=== PATIENT | female | born 2000 | race African-American/Black ===

== ENCOUNTER 2020-07-13 16:52 | Outpatient (CLI) | payer BC, SELFPAY ==
--- NOTE | ~2020-07-13 | MR_ITS ---
EXAMINATION: MR shoulder RT wo con DATE: 07/13/2020 17:38 INDICATION: Right shoulder pain and limited range of motion post injury several weeks prior TECHNIQUE: Magnetic resonance imaging (MRI) of the right shoulder was performed without intravenous c ontrast. Sequences included axial PD-weighted FS FSE, coronal oblique PD-weighted FS FSE, coronal obl ique T2-weighted FS FSE, sagittal PD-weighted FS FSE, and sagittal T1-weighted SE. COMPARISON: None. FINDINGS: Coracoacromial arch: The acromion undersurface is curved in morphology (type II). The coracoacromial ligament is normal. T here is marrow edema and suggestion of periosteal reaction at the lateral head of the right clavicle. No evident fracture line. The acromioclavicular alignment and joint space remains normal. There is m ild increased signal along the otherwise intact appearing coracoclavicular ligament. Rotator cuff: The supraspinatus, infraspinatus and teres minor tendons are normal. The subscapularis tendon is norm al. Normal rotator cuff muscle bulk and signal. Biceps tendon, glenoid labrum and glenohumeral cartilage: Long head of the biceps tendon is normal. Mild linear increased signal extending laterally into the 1 1:00-11:30 position of the posterior superior glenoid labrum consistent with small labral tear. Gleno humeral cartilage is normal. Fluid: Physiologic amount of fluid in the glenohumeral joint and biceps tendon sheath. No loose osteochondra l bodies. No abnormal fluid signal in the subacromial/subdeltoid bursa to suggest bursitis. Bones: Aside from the lateral right clavicle there is normal marrow signal. IMPRESSION: 1. Findings suggesting an acromioclavicular joint separation injury with normal alignment of the acro mioclavicular joint but with marrow edema and periosteal reaction along the lateral right clavicle li [place] related to acromioclavicular capsular avulsion injury and with low-grade sprain of the coracocla vicular ligament. Differential for the clavicular marrow edema would also include bone contusion and distal clavicular osteolysis. 2. Small tear at the posterior superior glenoid labrum. Reviewed, dictated and finalized at location A. ENTER HELPER IMPRESSION: 1. Findings suggesting an acromioclavicular joint separation injury with normal alignment of the acromioclavicular joint but with marrow edema and periosteal reaction along the lateral right clavicle likely related to acromioclavicular c apsular avulsion injury and with low-grade sprain of the coracoclavicular ligam ent. Differential for the clavicular marrow edema would also include bone contu eli and distal clavicular osteolysis. 2. Small tear at the posterior superior glenoid labrum.
== END 2020-07-13 16:53 | disposition home or self-care (01) ==
PROVIDERS: PCP Pediatrics; Visit Provider Nurse Practitioner Family
DX: S43.431A Superior glenoid labrum lesion of right shoulder, initial encounter (principal); X58.XXXA Exposure to other specified factors, initial encounter
CPT/HCPCS: 73221

== ENCOUNTER 2021-07-20 10:45 | Emergency (ER) | payer BC, SELFPAY ==
[2021-07-20] VITALS (7 sets, daily range): BP systolic 112–123; BP diastolic 71–85; PULSE 68–76; RESP 18; TEMP 37.2; O2SAT 100
--- NOTE | ~2021-07-20 | CT_ITS ---
EXAMINATION: CT brain wo con DATE: 07/20/2021 11:31 INDICATION: Left-sided numbness TECHNIQUE: Computed tomography (CT) of the head was performed without intravenous contrast. Sagittal and coronal reconstructions were performed. The mA was adjusted according to patient size. Iterative reconstruction technique was employed. The dose-length product was 605.33 mGy-cm. COMPARISON: None FINDINGS: No acute intracranial hemorrhage, acute infarction or abnormal extra axial fluid collection. Ventricl es are normal and symmetric. No mass/mass effect. Mucosal thickening in the posterior left ethmoid si nus. The orbits and mastoid air cells are normal. IMPRESSION: 1. Normal brain. Reviewed, dictated and finalized at location A. SERVICING REPRESENTATIVE IMPRESSION: 1. Normal brain.
--- NOTE | 2021-07-20 11:39 | PC.NURSE ---
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 Charge nurse and MD made aware.
[2021-07-20 12:10] LABS: Basophils Percent Auto 0.5 % (0.2-1.2); Eosinophils Absolute Auto 0.1 K/mm3 (0-0.3); Eosinophils Percent Auto 1.1 % (0-4.4); Hematocrit 37.8 % (37.0-47.0); Hemoglobin 12.7 g/dL (12.0-15.0); Immature Granulocyte Absolute 0.02 K/mm3 (0.00-0.031); Immature Granulocyte Percent A 0.2 % (0-0.5); Lymphocytes Absolute Auto 3.18 K/mm3 (0.9-3.2); Lymphocytes Percent Auto 39.4 % (18.3-44.2); Mean Corpuscular HGB Conc 33.6 g/dl (32-36); Mean Corpuscular Volume 83.3 fl (80-100); Mean Platelet Volume 10.2 fl (7.4-10.4); Monocytes Absolute Auto 0.6 K/mm3 (0.1-0.6); Monocytes Percent Auto 7.4 % (2.6-8.5); Neutrophils Absolute Auto 4.1 K/mm3 (1.3-6.7); Neutrophils Percent Auto 51.4 % (45.5-73.1); Platelet Count Result 215 k/mm3 (150-375); Red Blood Count 4.54 M/mm3 (4.2-5.4); Red Cell Distribution Width 12.6 % (11.5-14.5); White Blood Count 8.1 K/mm3 (4.5-10.0)
[2021-07-20 12:23] LABS: Add Urine Microscopic? YES; Appearance Urine Clear (Clear); Bilirubin Urine Negative (Negative); Blood Urine 1+ (Negative); Color Urine Straw (Yellow); Glucose Urine UA Negative (Negative); Ketones Urine Negative (Negative); Leukocyte Esterase Ur Negative LEU/UL (Negative); Nitrate Urine Negative (Negative); Protein Urine Negative (Negative); RBC Urine 0-2 /hpf (0-2); Specific Grav Ur 1.008 (1.001-1.035); Squamous Epithelial Cell Urine Rare /hpf (Few); Urobilinogen Urine Negative mg/dL (<2.0); WBC Urine 0-3 /hpf
[2021-07-20 12:24] LABS: Alanine Aminotransferase 21 U/L (4-35); Albumin Level 4.1 g/dL (3.5-5.1); Alkaline Phosphatase 119 U/L (38-126); Anion Gap 6 mmol/L (8-16); Aspartate Amino Transferase 30 U/L (14-36); Bilirubin,Total 0.4 mg/dL (0.2-1.3); Blood Urea Nitrogen 12 mg/dL (7-17); Calcium 8.8 mg/dL (8.4-10.2); Carbon Dioxide 26 mmol/L (22-30); Chloride 104 mmol/L (98-107); Estimated CRCL calculation 114 ml/min; Estimated Glomerular Filt Rate > 60; Glucose 103 mg/dL (65-110); Potassium 3.7 mmol/L (3.4-5.0); Sodium 136 mmol/L (137-145)
[2021-07-20] MEDS: methylPREDNISolone SOD SUCC 125 MG VIAL IV PUSH (13:13)
--- NOTE | 2021-07-20 16:09 | ED.GENADULT ---
HPI - General Adult General Chief complaint: Unspecified Stated complaint: paresthesia Time Seen by Provider: 07/20/21 11:54 Source: patient Mode of arrival: ambulatory Limitations: no limitations History of Present Illness HPI narrative: Patient presents with chief complaint of itching and tingling. Left upper and lower extremities that began while she was lying on her right side. Patient reports the left side feels as if she has been sleeping on them that she had not. Patient reports that she is can move the extremities without difficulties. She denies speech issues, changes in mentation, head injury or other bodily injury. She denies fever, chills, chest pain, shortness of breath, nausea, vomiting, changes in vision or hearing or headache. Related Data Home Medications Medication Instructions Recorded Confirmed No Home Medications 07/05/20 07/05/20 Allergies Allergy/AdvReac Type Severity Reaction Status Date / Time No Known Allergies Allergy Verified 07/05/20 14:21 Review of Systems Review of Systems: CONSTITUTIONAL: Denies fever, chills, or sweats. EYES: Denies visual changes, redness, or discharge. ENT: Denies rhinorrhea, congestion, sore throat, or otalgia. CARDIOVASCULAR: Denies chest pain, palpitations, or edema. RESPIRATORY: Denies cough or dyspnea. GASTROINTESTINAL: Denies abdominal pain, nausea, vomiting, or diarrhea. GENITOURINARY: Denies dysuria or hematuria. SKIN: Denies rash or itching. MUSCULOSKELETAL: Denies back pain, joint pain, or myalgia. NEUROLOGIC: Reports tingling denies headache, numbness, dizziness, or weakness. PSYCHIATRIC: Denies anxiety or depression. [facility] Past Medical History Medical History (Updated 07/20/21 @ 13:24 by Adriane Hutchins PA-C) Chest tightness Chronic headaches Coughing Light headedness Nausea Right shoulder pain Rotator cuff tear Wears glasses Family History Family History (Updated 07/05/20 @ 14:57 by Cherelle Horowitz, RT(R)) Other Family history of malignant neoplasm Stomach cancer Social History Social History (Updated 07/05/20 @ 14:57 by Cherelle Horowitz, RT(R)) Smoking status: Never smoker Alcohol intake: current Substance use: never Substance use type: does not use Gender identity (if verbalized by the patient): Female Exam Narrative: GENERAL: Well-appearing, well-nourished, and in no acute distress. HEAD: Normocephalic, atraumatic. EYES: PERRLA and EOMI. ENT: Nares clear, no rhinorrhea or epistaxis. Mucous membranes moist. Oropharynx without tonsillar hypertrophy exudate or other lesions. Bilateral TMs pearly be nonbulging. No hemotympanum NECK: Supple. No adenopathy or masses. Range of motion intact without signs of injury. CHEST: Clear to auscultation. No respiratory distress. No wheezes rales or rhonchi HEART: Regular rate and rhythm. EXTREMITIES: Normal range of motion. No edema. No outward signs of trauma. SKIN: Warm, dry, no rash. NEURO: No focal deficits. Alert and oriented x3. PSYCH: Normal mood and affect. Course Vital Signs Vital signs: Vital Signs Temperature 98.9 F 07/20/21 10:58 Pulse Rate 76 07/20/21 10:58 Respiratory Rate 18 07/20/21 10:58 Blood Pressure 123/71 07/20/21 10:58 Pulse Oximetry 100 07/20/21 10:58 Temperature 98.9 F 07/20/21 10:58 Pulse Rate 68 07/20/21 12:11 Respiratory Rate 18 07/20/21 12:11 Blood Pressure 116/85 07/20/21 13:01 Pulse Oximetry 100 07/20/21 13:01 Medical Decision Making MDM Narrative Medical decision making narrative: Patient has full range of motion to her extremities. She has normal CT report. Patient's lab work without abnormal findings. Patient reports decrease in itching and tingling sensation after steroid administration. Patient instructed to follow-up with her primary care for further evaluation and burning symptoms. Patient instructed if she develops any concerning or emergent symptoms or neurological defici
== END 2021-07-20 13:47 | disposition home or self-care (01) ==
PROVIDERS: Physician Assistant; Emergency Provider Family Medicine; PCP Pediatrics
DX: R20.2 Paresthesia of skin (principal)
CPT/HCPCS: 36415; 70450; 80053; 81001; 81025; 85025; 96374; 99284; J2930